=== PATIENT | female | born 2000 | race Two or more races ===

== ENCOUNTER 2024-07-02 19:51 | Emergency (ER) | payer BC, SELFPAY ==
[2024-07-02 19:53] VITALS: BMI 31.3
[2024-07-02 20:00] VITALS: BP 146/82; PULSE 76; RESP 16; TEMP 36.8; O2SAT 99
--- NOTE | 2024-07-02 20:16 | XR_ITS ---
Examination: Abdomen sonogram, Limited Date and time of exam: July 02, 2024 2031 hrs. Indications: Epigastric pain and nausea beginning 2 weeks ago Technique: Real-time medina scale transabdominal sonographic images of the upper abdomen obtained. Findings: Gallbladder sludge, technologist describes small stones which are not readily apparent on these images Normal gallbladder wall Common bile duct 0.3 cm Pancreatic head 2.1 cm Liver 16.8 cm fatty infiltration smooth contour no focal liver lesions Normal hepatopedal portal venous oh Patent IVC Impression: Technologist describes small stones which are not readily apparent on these images Recommend repeating the gallbladder study in 24 hours
--- NOTE | 2024-07-02 20:17 | PD.EDABDPN ---
ED Abdominal Pain RME/HPI General Chief Complaint: Abdominal Pain Stated complaint: ABD PAIN / NAUSEA Time seen by provider: 07/02/24 20:10 Arrival date/time: 07/02/24 19:51 Source: patient, RN notes reviewed and old records reviewed Mode of arrival: ambulatory Limitations: no limitations RME / HPI RME / HPI narrative: 24yof presents to ED for 3 to 4-week history of intermittent epigastric/RUQ abdominal pain radiating to back. Patient reports multiple episodes of nausea/vomiting last week as well as yesterday. No fever, shortness of breath, chest pain, diarrhea or urinary symptoms reported. Patient took ibuprofen 800mg this morning with some relief. Related Data Previous Rx's ?Medication ?Instructions ?Recorded acetaminophen 500 mg tablet 1,000 mg (2 x 500 mg) PO Q6H PRN 07/02/24 (Tylenol Extra Strength) pain #60 tabs ibuprofen 600 mg tablet 600 mg PO Q6H PRN pain #30 tabs 07/02/24 ondansetron 4 mg disintegrating 4 mg PO Q6H PRN nausea and 07/02/24 tablet vomiting #10 tabs Allergies Allergy/AdvReac Type Severity Reaction Status Date / Time No Known Allergies Allergy Verified 07/02/24 19:54 Review of Systems Review of Systems Systems Reviewed: All systems reviewed, normal except as documented Constitutional Constitutional: Denies chills and Denies fever(s) Cardiovascular Cardiovascular: Denies chest pain and Denies dyspnea Respiratory Respiratory: Denies dyspnea Gastrointestinal Gastrointestinal: Reports abdominal pain, Denies loose stools, Reports nausea and Reports vomiting Genitourinary Genitourinary: Denies dysuria, Denies flank pain and Denies hematuria Past Medical History Past Medical History GASTROINTESTINAL: Positive Obesity Social History SMOKING STATUS: Never smoker SUBSTANCE USE: does not use ALCOHOL: Never ED Exam General Limitations: Present no limitations General appearance: Present alert and in no apparent distress Head Head exam: Present atraumatic and normocephalic Eye Eye exam: Present normal appearance, PERRL and EOMI ENT ENT exam: Present normal exam and mucous membranes moist Neck Neck exam: Present normal inspection and full ROM Chest Chest inspection: Present normal inspection and symmetric chest wall rise Respiratory Respiratory exam: Present normal lung sounds bilaterally; Absent respiratory distress Cardiovascular Cardiovascular exam: Present regular rate and normal rhythm Abdominal Exam Abdominal exam: Present soft and tenderness (Epigastric/RUQ, mild); Absent distention, guarding or rebound Extremities Exam Extremities exam: Present normal inspection and full ROM Back Exam Back exam: Absent CVA tenderness (R) or CVA tenderness (L) Neurological Exam Neurological exam: Present alert and oriented X3 Psychiatric Psychiatric exam: Present normal affect and normal mood Skin Skin exam: Present warm, dry, intact and normal color Course Quality Measures none Orders Category Date Time Status US gall bladder Stat Exams 07/02/24 20:16 Completed CBC Stat Lab 07/02/24 20:23 Completed CMP [Comprehensive Metabolic Panel] Stat Lab 07/02/24 20:23 Completed HCG Qualitative,Urine Stat Lab 07/02/24 21:02 Completed Lipase Stat Lab 07/02/24 20:23 Completed Path Review Blood Smear Stat Lab 07/02/24 20:23 Completed UA [Urinalysis] Stat Lab 07/02/24 21:02 Completed Ketorolac Inj [Toradol Inj] Med 07/02/24 20:16 Discontinued 30 mg IM X1 ONE Ondansetron Odt [Zofran Odt] Med 07/02/24 20:16 Discontinued 4 mg PO X1 ONE Vital Signs Vital signs: Vital Signs Temperature 98.2 F 07/02/24 20:00 Pulse Rate 76 07/02/24 20:00 Respiratory Rate 16 07/02/24 20:00 Blood Pressure 146/82 H 07/02/24 20:00 Pulse Oximetry (%) 99 07/02/24 20:00 Oxygen Delivery Method Room Air 07/02/24 20:00 Abdominal Pain MDM MDM Narrative MDM Narrative:: 24yof presents to ED for 3 to 4-week history of intermittent epigastric/RUQ abdominal pain radiating to back. Patient reports multiple episodes of nausea/vomiting last week as well as yesterday. No fever, shortness of breath, chest pain, diarrhea or urinary symptoms reported. Patient took ibuprofen 800mg this morning with some relief. Patient updated on labs and imaging. Encouraged close outpatient f/u with general surgery, symptomatic treatment prn. Stable for dc, RTED precautions given. Patient data External records reviewed:: None (No prior visits) Clinical information provided by:: patient Social determinants that could affect healthcare access:: other (specify) (poor access to healthcare) Patient has the following chronic illnesses:: Obesity How is presenting disease/condition affected by chronic disease/condition?: exacerbated by Evaluation data The following diagnostics were reviewed and interpreted by me:: lab results and radiology exam(s) Lab and/or radiology exams considered but not ordered:: None Interpretation Summary: WBC 12 LFTs and lipase wnl US gallbladder: Impression: Technologist describes small stones which are not readily apparent on these images Recommend repeating the gallbladder study in 24 hours Dictated By: Doron Bass MD Medications / Prescriptions Medications or Prescriptions considered but not ordered:: No antibiotics recommended at this time Medication administrations:: Medication Administration History Discontinued Medications Ketorolac Tromethamine (Ketorolac Inj 60 Mg/2 Ml Vial) 30 mg IM X1 ONE Stop: 07/02/24 20:17 Last Admin: 07/02/24 20:25 Dose: 30 mg Documented By: Ondansetron HCl (Ondansetron Odt 4 Mg Tabrap) 4 mg PO X1 ONE; Protocol Stop: 07/02/24 20:17 Last Admin: 07/02/24 20:25 Dose: 4 mg Documented By: Above medications administered in ED Consultations Consultation(s) initiated? (list below): No Diagnosis Differential diagnosis abdominal pain: abdominal pain, calculus of kidney, constipation, pancreatitis and other (Cholelithiasis, cholecystitis, PUD, gastritis) Most likely diagnosis given after review of the tests above:: Cholelithiasis Admission Indicated Admission indicated?: not indicated Admission Request Was there a request for admission?: No Disposition Plan Disposition Plan: Discharge Discharge Attestation Discharge Attestation: The patient and all family members were given an opportunity to ask questions and understood the discharge instructions. Discharge instructions specifically effects, indications for sooner follow up or return to the emergency department, and the expected course of current diagnosis. Patient condition: Stable Discharge Plan Plan Patient Disposition: HOME (Self Care) Patient condition on transfer: Stable Prescriptions/Referrals Prescriptions/Med Rec: New ondansetron 4 mg tablet,disintegrating 4 mg PO Q6H PRN (Reason: nausea and vomiting) Qty: 10 0RF ibuprofen 600 mg tablet 600 mg PO Q6H PRN (Reason: pain) Qty: 30 0RF acetaminophen [Tylenol Extra Strength] 500 mg tablet 1,000 mg PO Q6H PRN (Reason: pain) Qty: 60 0RF Referrals: Nena Bianchi MD [Physician] - None (Call to schedule an appointment for a visit.) Temporary Provider,ED [Physician] - In 1 week Problem List Clinical Impression: Cholelithiasis Patient/Caregiver Discharge Instructions Education Materials: ED Gallstones with Biliary Colic Print Language: Maldivian Stand Alone Forms: [employer] Award Info., Work/School Release, Patient Portal Info Letter PA/CHIROPRACTIC PHYSICIAN Supervising Physician PA/CHIROPRACTIC PHYSICIAN Supervising Physician: Joe
[2024-07-02] MEDS: ONDANSETRON ODT 4 MG TABRAP PO (20:25)
[2024-07-02] MEDS: KETOROLAC INJ 60 MG/2 ML VIAL 30 MG IM (20:25)
[2024-07-02 20:52] LABS: Basophils # (Auto) 0.1 Thou/mm3 (0.0-0.2); Basophils % (Auto) 1 % (0-2.5); Eosinophils # (Auto) 0.2 Thou/mm3 (0.0-0.5); Eosinophils % (Auto) 1 % (0-10); Hematocrit 38.2 % (36.0-46.0); Hemoglobin 12.8 g/dL (12.0-16.0); Immature Granulocytes % (Auto) 0 % (0-0); Immature Granulocytes Auto 0.03 Thou/mm3 (0.00-0.00); Lymphocytes # (Auto) 5.2 Thou/mm3 (1.0-4.8); Lymphocytes % (Auto) 42 % (10-50); Mean Corpuscular HGB Conc 33.5 g/dl (31.0-37.0); Mean Corpuscular Hemoglobin 29.4 pg (25.0-35.0); Mean Corpuscular Volume 88 fL (80-100); Monocytes # (Auto) 0.7 Thou/mm3 (0.0-0.8); Monocytes % (Auto) 5 % (0-12); Neutrophils # (Auto) 6.2 Thou/mm3 (1.8-7.7); Neutrophils % (Auto) 50 % (37-80); Nucleated Red Blood Cell % 0 /100 WBC (0); Platelet Count 348 Thou/mm3 (140-440); RDW Standard Deviation 39.6 fL (36.4-46.3); Red Blood Count 4.36 Miln/mm3 (4.00-5.20); White Blood Count 12.3 Thou/mm3 (3.6-11.0)
[2024-07-02 21:14] LABS: Alanine Aminotransferase 22 U/L (10-49); Albumin, Serum 4.6 gm/dL (3.5-5.0); Albumin/Globulin Ratio 1.4 (1.2-2.2); Alkaline Phosphatase 91 U/L (46-116); Anion Gap 9 (7-16); Aspartate Amino Transferase 17 U/L (0-34); BUN/Creatinine Ratio 15 Ratio (12-20); Bilirubin,Total 0.3 mg/dL (0.3-1.2); Blood Urea Nitrogen 12 mg/dL (9-23); Calcium 9.4 mg/dL (8.3-10.6); Calcium (Corrected) 9.4 mg/dL (8.5-10.1); Carbon Dioxide 28.4 mMol/L (20.0-31.0); Chloride 105 mMol/L (98-107); Creatinine (Component) 0.8 mg/dL (0.6-1.3); Estimated Creatinine Clearance 106.9 mL/min (>60); Globulin 3.4 gm/dL (2.3-3.5); Glucose 103 mg/dL (74-106); Lipase 32 U/L (12-53); Osmolality,Calculated 282 (275-295); Potassium 3.9 mMol/L (3.4-5.1); Sodium 142 mMol/L (136-145); eGFR > 60 See Note
[2024-07-02 21:56] LABS: Collection Type, Urine Clean Catch
[2024-07-02 22:04] LABS: Bilirubin,Urine Negative (Negative); Blood,Urine 2+ (Negative); Clarity,Urine Clear (Clear/Hazy); Color,Urine Lt-Yellow (Lt Yel-Yel); Glucose, Urine Negative (Negative); Ketones,Urine Negative (Negative); Leukocyte Esterase,Urine Negative (Negative); Nitrite,Urine Negative (Negative); PH,Urine 6.5 (5.0-7.0); Protein,Urine Negative (Neg - Trace); RBC,Urine 1 /hpf (0-3); Specific Gravity,Urine 1.021 (1.001-1.035); Squamous Epithelial Cell,Urine 3 /hpf (0-5); Urobilinogen,Urine Negative mg/dL (0.0-1.0); WBC,Urine 1 /hpf (0-5)
[2024-07-02 22:20] LABS: HCG Qualitative,Urine Negative
[2024-07-03 05:23] LABS: Path Review Blood Smear Sent to Pathologist
== END 2024-07-02 22:27 | disposition home or self-care (01) ==
PROVIDERS: Physician Assistant; Emergency Provider Emergency Medicine
DX: K80.70 Calculus of gallbladder and bile duct without cholecystitis without obstruction (principal)
CPT/HCPCS: 36415; 76705; 80053; 81001; 81025; 83690; 85025; 96372; 99284; J1885; Q0162